=== PATIENT | female | born 1970 | race Native Hawaiian/Other Pacific Islander ===

== ENCOUNTER 2021-12-02 10:27 | Emergency (ER) | payer OTHER ==
[~2021-12-02] VITALS: Ht 154.9 cm; Wt 96.6 kg
[2021-12-02 10:36] VITALS: TEMP 97.5
[2021-12-02 11:13] LABS: PLATELET COUNT 304 K/uL (152-353)
[2021-12-02 11:22] LABS: POTASSIUM 3.7 mmol/L (3.6-5.2)
[2021-12-02 11:33] LABS: PARTIAL THROMBOPLASTIN TIME 25.8 SECONDS (24.5-33.6)
[2021-12-02 16:30] VITALS: BP 124/82
== END 2021-12-02 16:47 | disposition home or self-care (01) ==
LOC: ED 10:27
PROVIDERS: Emergency Medicine
DX: R07.89 Other chest pain (principal)
CPT/HCPCS: 80053; 81002; 84484; 85027; 85379; 85610; 85730; 93005; 96372; 99284; J1170; J2270; J2405; J2550

== ENCOUNTER 2022-01-23 08:41 | Emergency (ER) | payer BC ==
[~2022-01-23] VITALS: Ht 154.9 cm; Wt 96.6 kg
[2022-01-23 08:45] VITALS: TEMP 98
[2022-01-23 10:45] VITALS: BP 116/72
== END 2022-01-23 10:55 | disposition home or self-care (01) ==
LOC: ED 08:41
PROC: 2W3QX1Z Immobilization of Right Lower Leg using Splint (ICD-10-PCS; principal; 2022-01-23)
DX: S40.011A Contusion of right shoulder, initial encounter (principal); S90.01XA Contusion of right ankle, initial encounter; S80.02XA Contusion of left knee, initial encounter; S80.01XA Contusion of right knee, initial encounter; W18.39XA Other fall on same level, initial encounter; Y92.89 Other specified places as the place of occurrence of the external cause
CPT/HCPCS: 99283

== ENCOUNTER 2022-03-09 09:12 | Emergency (ER) | payer OTHER ==
[~2022-03-09] VITALS: Ht 154.9 cm; Wt 96.6 kg
[2022-03-09 09:20] VITALS: BP 140/72; TEMP 97.9
== END 2022-03-09 11:00 | disposition still patient (30) ==
LOC: ED 09:12
DX: S90.31XA Contusion of right foot, initial encounter (principal); W20.8XXA Other cause of strike by thrown, projected or falling object, initial encounter; Y92.89 Other specified places as the place of occurrence of the external cause
CPT/HCPCS: 99282

== ENCOUNTER 2022-09-05 12:11 | Emergency (ER) | payer OTHER ==
[~2022-09-05] VITALS: Ht 154.9 cm; Wt 94.3 kg
[2022-09-05 12:11] VITALS: TEMP 98.7
[~2022-09-05 12:11] MED LIST: ALPR0.5T24 PO; AMBIEN CR12.5 MG PO; BUSPIRONE HYDRO15 MG PO; CLINDAMYCIN HY300 MG PO; DICL50TA PO; GABA400C2 PO; JANUVIA100 MG PO; LAMICTAL150 MG PO; LIPITOR20 MG PO; METFORMIN HYD1000 MG PO; NU-IRON 150150 MG PO; QUETIAPINE400 MG PO; RYBELSUS3 MG PO; VENLAFAXINE HYD75 M2 PO
[2022-09-05 13:22] LABS: PLATELET COUNT 377 K/uL (152-353)
[2022-09-05 13:27] LABS: PARTIAL THROMBOPLASTIN TIME 26.4 SECONDS (23.9-36.7)
[2022-09-05 13:35] LABS: POTASSIUM 3.6 mmol/L (3.6-5.2); SODIUM 131 mmol/L (136-145)
[2022-09-05 16:36] VITALS: BP 165/77
== END 2022-09-05 16:36 | disposition home or self-care (01) ==
LOC: ED 12:11
PROVIDERS: Family Medicine
DX: F41.9 Anxiety disorder, unspecified (principal); D64.9 Anemia, unspecified
CPT/HCPCS: 80053; 82550; 84484; 85027; 85610; 85730; 93005; 99284